=== PATIENT | male | born 1995 | race Caucasian/White ===

== ENCOUNTER 2019-01-18 19:03 | Emergency (ER) | payer SELFPAY ==
[2019-01-18 19:20] VITALS: BP 143/71; PULSE 66; TEMP 97.8; BMI 27.6
--- NOTE | 2019-01-18 19:21 | PDOC ---
Rapid Medical Evaluation Chief Complaint: Lightheaded Time Seen by Provider: 01/18/19 19:16 Medical Evaluation: Allergies Allergy/AdvReac Type Severity Reaction Status Date / Time No Known Allergies Allergy Verified 01/18/19 19:15 01/18/19 19:16 I have performed a brief in-person evaluation of this patient Chief complaint: denies pmhx c/o near syncope x 6 days with chills, dizziness. denies n/v/d, cp. Pertinent PE findings: stable, NAD, non-focal I have ordered the following: ecg The patient will proceed to the ED for further evaluation. I have performed a brief in-person evaluation of this patient. Discharge Disposition - Diagnosis Near syncope - Referrals - Patient Instructions - Post Discharge Activity
--- NOTE | 2019-01-18 20:29 | PDOC ---
History of Present Illness - General Chief Complaint: Lightheaded Stated Complaint: DIZZINESS Time Seen by Provider: 01/18/19 19:16 History Source: Patient Exam Limitations: No Limitations - History of Present Illness Initial Comments: 01/18/19 21:08 HISTORY OF PRESENT ILLNESS: 24-year-old male denies medical history presents to the emergency department for evaluation of palpitations and "I was about to pass out." Patient reports he was on the train today after work and was thinking about his life stressors when he began to feel palpitations and mildly short of breath. Patient reported his feel the vision became black on the periphery slowly compressing on the central visual vance. Patient was experiencing carpopedal spasms at this time. Patient reports before he lost the entire field of vision symptoms started to resolve spontaneously. Patient reports having a similar episode on Tuesday while riding the train and thinking about his life at that time. That day he reported he had to go down to one knee while on the train but never lost tone. Patient reported this episode on the train Tuesday lasted approximately 5 minutes before spontaneous resolution. Presently the patient has no complaints. No recent travel or sick contacts. PAST MEDICAL HISTORY: Denies past medical history SURGICAL HISTORY: Denies ALLERGIES: No known drug allergies REVIEW OF SYSTEMS General/Constitutional: Denies fever or chills. Denies weakness, weight change. HEENT: Denies change in vision. Denies ear pain or discharge. Denies sore throat. Cardiovascular: See HPI Respiratory: Denies cough, wheezing, or hemoptysis. Gastrointestinal: Denies nausea, vomiting, diarrhea or constipation. Denies rectal bleeding. Genitourinary: Denies dysuria, frequency, or change in urination. Musculoskeletal: See HPI. Skin and breasts: Denies rash or easy bruising. Neurologic: Denies headache, vertigo, loss of consciousness, or loss of sensation. Psychiatric: Denies depression or anxiety. Endocrine: Denies increased thirst. Denies abnormal weight change. Hematologic/Lymphatic: Denies anemia, easy bleeding, or history of blood clots. Allergic/Immunologic: Denies hives or skin allergy. Denies latex allergy. PHYSICAL EXAM General Appearance: Well-appearing, appropriately dressed. No apparent distress , no intoxication. HEENT: EOMI, PERRLA, normal ENT inspection, normal voice, TMs normal, pharynx normal. No conjunctival pallor. No photophobia, scleral icterus. Neck: Supple. Trachea midline. No tenderness, rigidity, carotid bruit, stridor , lymphadenopathy, or thyromegaly. Respiratory/Chest: Lungs CTAB. No shortness of breath, chest tenderness, respiratory distress, accessory muscle use. No crackles, rales, rhonchi, stridor , wheezing, dullness Cardiovascular: RRR. S1, S2. No JVD, murmur, bradycardia, tachycardia. Vascular Pulses: Dorsalis-Pedis (R): 2+, Dorsalis-Pedis (L): 2+ Gastrointestinal/Abdominal: Normal bowel sounds. Abdomen soft, non-distended. No tenderness or rebound tenderness. No organomegaly, pulsatile mass, guarding, hernia, hepatomegaly, splenomegaly. Lymphatic: No adenopathy, tenderness. Musculoskeletal/Extremities: Normal inspection. FROM of all extremities, normal capillary refill. Pelvis Stable. No CVA tenderness. No tenderness to extremities, pedal edema, swelling, erythema or deformity. Integumentary: Appropriate color, dry, warm. No cyanosis, erythema, jaundice or rash Neurologic: shoemaking cutter II-XII intact. Fully oriented, alert. Appropriate mood/affect. Motor strength 5/5. No appreciable EOM palsy, facial droop or sensory deficit. 01/18/19 21:41 Past History - Past Medical History Allergies/Adverse Reactions: Allergies Allergy/AdvReac Type Severity Reaction Status Date / Time No Known Allergies Allergy Verified 01/18/19 19:15 Home Medications: Ambulatory Orders Hydroxyzine HCl 10 mg PO TID PRN #30 tablet 01/18/19 COPD: No - Psycho Social/Smoking Cessation Hx Smoking History: Never smoked Number of Cigarettes Smoked Daily: 0 Hx Alcohol Use: No Substance Use Type: None *Physical Exam - Vital Signs Last Vital Signs Temp Pulse Resp BP Pulse Ox 97.8 F 66 18 143/71 99 01/18/19 19:16 01/18/19 19:16 01/18/19 19:16 01/18/19 19:16 01/18/19 19:16 ED Treatment Course - LABORATORY CBC & Chemistry Diagram: 01/18/19 21:00 01/18/19 21:00 Medical Decision Making - Medical Decision Making 01/18/19 21:39 A/P: 24-year-old male with presyncopal episode and carpopedal spasms today while contemplating his life Most likely a panic attack. Given patient felt mildly short of breath with slight chest pain and palpitations I will obtain laboratory testing with one set of cardiac enzymes. EKG is sinus rhythm with incomplete right bundle branch block. Normal intervals present. QTc 434 ms no ischemic changes present. Urinalysis, urine toxicology Reassess 01/18/19 21:54 Laboratory Tests 01/18/19 01/18/19 01/18/19 21:00 21:00 21:00 WBC 5.8 Hgb 15.2 Hct 43.3 Plt Count 285 D Sodium 139 Potassium 3.5 Chloride 107 Carbon Dioxide 26 BUN 11.7 Creatinine 0.7 Est GFR (CKD-EPI)AfAm 154.17 Est GFR (CKD-EPI)NonAf 133.02 Random Glucose 92 Calcium 9.0 Total Bilirubin 0.9 AST 16 ALT 33 Alkaline Phosphatase 101 Creatine Kinase 134 Troponin I < 0.02 Total Protein 7.5 Albumin 4.5 Urine Color Urine Appearance Urine pH Ur Specific [place] Urine Protein Urine Glucose (UA) Urine Ketones Urine Blood Urine Nitrite Urine Bilirubin Urine Urobilinogen Ur Leukocyte Esterase Opiates Screen Methadone Screen Barbiturate Screen Phencyclidine Screen Ur Amphetamines Screen MDMA (Ecstasy) Screen Benzodiazepines Screen Cocaine Screen U Marijuana (THC) Screen 01/18/19 01/18/19 21:00 21:22 WBC Hgb Hct Plt Count Sodium Potassium Chloride Carbon Dioxide BUN Creatinine Est GFR (CKD-EPI)AfAm Est GFR (CKD-EPI)NonAf Random Glucose Calcium Total Bilirubin AST ALT Alkaline Phosphatase Creatine Kinase Troponin I Total Protein Albumin Urine Color Yellow Urine Appearance Clear Urine pH 5.5 D Ur [place] 1.010 Urine Protein Negative Urine Glucose (UA) Negative Urine Ketones Trace H Urine Blood Negative Urine Nitrite Negative Urine Bilirubin Negative Urine Urobilinogen 0.2 Ur Leukocyte Esterase Negative Opiates Screen Negative Methadone Screen Negative Barbiturate Screen Negative Phencyclidine Screen Negative Ur Amphetamines Screen Negative MDMA (Ecstasy) Screen Negative Benzodiazepines Screen Negative Cocaine Screen Negative U Marijuana (THC) Screen Negative Given normal laboratory testing I feel the patient is safe to discharge home to follow-up with a primary doctor. Patient reports he does not have a primary doctor and I will give him the name of the [facility] internal medicine group. I discussed the physical exam findings, ancillary test results and final diagnoses with the patient. I answered all of the patient's questions. The patient was satisfied with the care received and felt comfortable with the discharge plan and treatment plan. The patient will call their primary care physician within 24 hours to arrange follow-up and will return to the Emergency Department with any new, persistent or worsening symptoms. Discharge - Discharge Information Problems reviewed: Yes Clinical Impression/Diagnosis: Panic attack Condition: Fair Disposition: HOME - Admission No - Additional Discharge Information Prescriptions: Hydroxyzine HCl 10 mg PO TID PRN #30 tablet PRN Reason: Anxiety - Follow up/Referral Referrals: [facility] [place] [Provider Group] - Patient Discharge Instructions Additional Instructions: Eat a well-balanced diet. Stay hydrated. Take hydroxyzine 10 mg every 8 hours as needed for anxiety. You have been given a referral for a primary doctor. Call to schedule an appointment for follow-up. Return to the emergency department for any new or worsening symptoms. Thank you very much for choosing us to provide your emergent health care needs. - Post Discharge Activity
[2019-01-18 21:20] LABS: BASO % 0.8 % (0-2.0); EOS % 3.1 % (0-4.5); HEMATOCRIT 43.3 % (35.4-49); HEMOGLOBIN 15.2 GM/dL (11.7-16.9); LYMPH % 29.9 % (8-40); MCHC 35.1 g/dl (32.0-35.9); MEAN CELL VOLUME 88.3 fl (80-96); MEAN PLT VOLUME 8.3 fl (7.5-11.1); MONO % 8.6 % (3.8-10.2); NEUT % 57.6 % (42.8-82.8); PLATELET COUNT 285 K/MM3 (134-434); RDW 13.3 % (11.9-15.9); WHITE BLOOD COUNT 5.8 K/mm3 (4.0-10.0)
[2019-01-18 21:29] LABS: PH,URINE 5.5 (5.0-8.0); URINE APPEARANCE CLEAR; URINE BILIRUBIN NEGATIVE (NEGATIVE); URINE COLOR YELLOW; URINE GLUCOSE (UA) NEGATIVE (NEGATIVE); URINE KETONE TRACE (NEGATIVE); URINE LEUK ESTERASE NEGATIVE (NEGATIVE); URINE NITRITE NEGATIVE (NEGATIVE); URINE PROTEIN NEGATIVE (NEGATIVE); URINE UROBILINOGEN 0.2 mg/dL (0.2-1.0)
[2019-01-18 21:42] LABS: ALBUMIN 4.5 g/dl (3.4-5.0); BILIRUBIN,TOTAL 0.9 mg/dL (0.2-1); BLOOD UREA NITROGEN 11.7 mg/dL (7-18); CREATININE 0.7 mg/dL (0.55-1.3); POTASSIUM 3.5 mmol/L (3.5-5.1); TOT PROT 7.5 g/dl (6.4-8.2)
[2019-01-18 21:51] LABS: COCAINE, UR NEGATIVE ng/ml (CUTOFF=300); METHADONE, UR NEGATIVE ng/ml (CUTOFF=300); OPIATES, URI NEGATIVE ng/ml (CUTOFF=300); PHENCYCLIDINE,URINE NEGATIVE ng/ml (CUTOFF=25); URINE AMPHETAMINES NEGATIVE ng/ml (CUTOFF=500); URINE BARBITURATES NEGATIVE ng/ml (CUTOFF=200); URINE BENZODIAZEPINES NEGATIVE ng/ml (CUTOFF=200)
--- NOTE | 2019-01-19 13:05 | EKG ---
Test Reason : Blood Pressure : / mmHG Vent. Rate : 069 BPM Atrial Rate : 069 BPM P-R Int : 130 ms QRS Dur : 122 ms QT Int : 404 ms P-R-T Axes : -01 119 060 degrees QTc Int : 432 ms SINUS RHYTHM WITH MARKED SINUS ARRHYTHMIA RIGHT BUNDLE BRANCH BLOCK ABNORMAL ECG WHEN COMPARED WITH ECG OF 23-MAR-2014 14:05, T WAVE INVERSION NOW EVIDENT IN ANTERIOR LEADS Confirmed by CECILY RÍOS, CHEL ([id number]) on 01/19/2019 1:04:56 PM Referred By: Confirmed By:CHEL TONY MD
== END 2019-01-18 22:07 | disposition home or self-care (01) ==
LOC: JER 19:03
DX: F41.0 Panic disorder [episodic paroxysmal anxiety] (principal)
CPT/HCPCS: 36415; 80053; 80307; 81003; 82550; 84484; 85025; 93005; 93010; 99283-25